=== PATIENT | male | born 1955 | race Caucasian/White ===

== ENCOUNTER 2019-03-03 03:14 | Emergency (ER) | payer BC ==
[~2019-03-03] VITALS: Ht 162.6 cm; Wt 90.9 kg
[2019-03-03] MEDS ORDERED: hyDRALAzine 10mg tablet PO SCH (03:45)
[2019-03-03] MEDS ORDERED: hyDRALAzine 10mg tablet PO ONE (03:45)
[2019-03-03 05:39] VITALS: BP 142/77
== END 2019-03-03 05:41 | disposition home or self-care (01) ==
LOC: ER 03:15
DX: I10 Essential (primary) hypertension (principal); G43.909 Migraine, unspecified, not intractable, without status migrainosus
CPT/HCPCS: 99283

== ENCOUNTER 2019-03-04 10:01 | Emergency (ER) | payer BC, MEDICARE ==
[~2019-03-04] VITALS: Ht 157.5 cm; Wt 80.0 kg
--- NOTE | 2019-03-04 11:30 | NUR ---
WAITING FOR PROVIDER, ASSIST PT WITH LAYING HIS BED DOWN AND GIVING HIM A BLANKET.
[2019-03-04] MEDS ORDERED: hyDRALAzine 10mg tablet PO STA (11:56)
--- NOTE | 2019-03-04 12:09 | NUR ---
Medicated as ordered for elevated blood pressure. Pt reports headache 3/10 and mild nausea at this time. JOSEPH Manriquez is with the patient at this time.
[2019-03-04] MEDS ORDERED: ketorolac tromethamine 15mg/ml inj. IM ONE (12:15)
[2019-03-04] MEDS ORDERED: diphenhydrAMINE 25mg capsule PO ONE (12:15)
[2019-03-04] MEDS ORDERED: proCHLORperazine 10 MG/2 ml inj IM ONE (12:15)
[2019-03-04 13:50] VITALS: BP 135/92
== END 2019-03-04 14:05 | disposition home or self-care (01) ==
LOC: ER 10:01
DX: I10 Essential (primary) hypertension (principal); G44.209 Tension-type headache, unspecified, not intractable
CPT/HCPCS: 96372; 99283; J0780; J1885; Q0163

== ENCOUNTER 2021-03-24 08:58 | Emergency (ER) | payer BC ==
[~2021-03-24] VITALS: Ht 170.2 cm; Wt 90.9 kg
[2021-03-24] MEDS ORDERED: normal saline 1000ML IV soln IVB ONE (09:20)
[2021-03-24] MEDS ORDERED: morphine 4 MG/ML inj SYRINge IV ONE (09:20)
[2021-03-24] MEDS ORDERED: ondansetron/PF 4mg/2ml inj IV ONE (09:20)
[2021-03-24] MEDS ORDERED: IOHEXOL 12MG/ML oral solution 500 ML BOTTLE PO ONE (09:25)
[2021-03-24 09:39] LABS: CLARITY,URINE CLEAR (Clear); COLOR,URINE YELLOW (Yellow); GLUCOSE, URINE NEGATIVE (Neg); KETONES,URINE NEGATIVE (Neg); LEUKOCYTE ESTERASE ,URINE NEGATIVE (Neg); NITRITES, URINE NEGATIVE (Neg); OCCULT BLOOD,URINE TRACE-INTACT (Neg); PH,URINE 5.5 (4.8-8.0); PROTEIN,URINE NEGATIVE (Neg); UROBILINOGEN,URINE 0.2 E.U/dL (0.2-1.0)
[2021-03-24 09:40] LABS: UA COLLECTION TYPE CLN CATCH MIDSTREAM
[2021-03-24 09:40] LABS: BASOPHILS # (AUTO) 0.1 X10'3 (0-0.2); BASOPHILS % (AUTO) 0.7 % (0-1); EOSINOPHILS # (AUTO) 0.1 X10'3 (0-0.9); EOSINOPHILS % (AUTO) 1.1 % (0-6); HEMATOCRIT 43.6 % (42.0-52.0); HEMOGLOBIN 15.4 g/dl (14.0-17.9); LYMPHOCYTES # (AUTO) 1.1 X10'3 (1.1-4.8); LYMPHOCYTES % (AUTO) 13.5 % (21-51); MEAN CORPUSCULAR HEMOGLOBIN 32.8 PG (27.0-31.0); MEAN CORPUSCULAR HGB CONC 35.4 g/dL (33.0-36.5); MEAN CORPUSCULAR VOLUME 92.5 FL (78-98); MEAN PLATELET VOLUME 8.6 FL (7.4-10.4); MONOCYTES # (AUTO) 0.5 X10'3 (0-0.9); MONOCYTES % (AUTO) 6.6 % (2-12); NEUTROPHILS # (AUTO) 6.4 X10'3 (1.8-7.7); NEUTROPHILS % (AUTO) 78.1 % (42-75); PLATELET COUNT 237 X10'3 (140-440); RED BLOOD COUNT 4.71 X10'6 (4.70-6.10); WHITE BLOOD COUNT 8.3 X10'3 (4.5-11.0)
[2021-03-24 09:45] LABS: MUCUS STRANDS MANY /LPF (Neg)
[2021-03-24 09:46] LABS: SQUAMOUS EPITHELIAL CELL,UR MODERATE /LPF (FEW)
[2021-03-24 09:48] LABS: WBC,URINE 0-4 /HPF (0-4)
[2021-03-24 09:49] LABS: BACTERIA,URINE FEW /HPF (Neg)
[2021-03-24 09:58] LABS: ALANINE AMINOTRANSFERASE 25 U/L (12-78); ALBUMIN 4.2 G/DL (3.4-5.0); ALBUMIN/GLOBULIN RATIO 1.2 (1.1-1.5); ALKALINE PHOSPHATASE 87 IU/L (46-116); ANION GAP 9 (8-16); ASPARTATE AMINO TRANSFERASE 20 U/L (10-37); BILIRUBIN,TOTAL 0.4 MG/DL (0.1-1.0); BLOOD UREA NITROGEN 22 MG/DL (7-18); BUN/CREATININE RATIO 18.5 (5.4-32.0); CALCIUM 9.4 MG/DL (8.5-10.1); CHLORIDE 101 MMOL/L (99-107); CREATININE 1.19 MG/DL (0.60-1.10); GLUCOSE 120 MG/DL (70-104); LIPASE 246 U/L (73-393); MAGNESIUM 2.1 MG/DL (1.5-2.4); POTASSIUM 4.2 MMOL/L (3.5-5.1); SODIUM 136 MMOL/L (135-145); TOTAL CARBON DIOXIDE 26.2 MMOL/L (24-32); TOTAL PROTEIN 7.7 G/DL (6.4-8.2); eGFR 62 ML/MIN
[2021-03-24] MEDS: diatr meglu/diatrizoate 30ml oral sol.-(3 dose) bottle PO SCH ×3 (10:13→11:11)
[2021-03-24] MEDS ORDERED: iohexol 300mg/ml 100ml inj. ONE (10:28)
[2021-03-24] MEDS ORDERED: CIPR-259 PO (12:54)
[2021-03-24] MEDS ORDERED: ONDA4TAB12 PO (12:54)
[2021-03-24] MEDS ORDERED: METR-159 PO (12:54)
[2021-03-24] MEDS ORDERED: HYDR-3964 PO (12:55)
[2021-03-24] MEDS ORDERED: metroNIDAZOLE-Flagyl 500mg/NS 100 ML IV SCH (13:00)
[2021-03-24] MEDS ORDERED: metroNIDAZOLE-Flagyl 500mg/NS 100 ML IV ONE (13:00)
[2021-03-24] MEDS ORDERED: ciprofloxacin lact 400MG/200ML 200 ML IV ONE (13:00)
[2021-03-24 14:30] VITALS: BP 115/73
== END 2021-03-24 16:16 | disposition home or self-care (01) ==
LOC: ER 08:59
DX: K52.9 Noninfective gastroenteritis and colitis, unspecified (principal); R10.84 Generalized abdominal pain; K59.00 Constipation, unspecified; Z79.2 Long term (current) use of antibiotics; Z79.899 Other long term (current) drug therapy
CPT/HCPCS: 36415; 71046; 74177; 80053; 81001; 83690; 83735; 84484; 85025; 93005; 96361; 96365; 96367; 96375; 99285; J0744; J2270; J2405; J3490; J7030; Q9963; Q9967

== ENCOUNTER 2021-10-30 21:23 | Emergency (ER) | payer BC ==
[~2021-10-30] VITALS: Ht 165.1 cm; Wt 87.3 kg
[~2021-10-30 21:23] MED LIST: ONDA4TAB12 PO
[2021-10-30 21:52] VITALS: BP 151/90
--- NOTE | 2021-10-31 02:13 | NUR ---
Patient advised me he didn't want to wait anymore to see the doctor. I advised him it would be in his best interest to have his wound looked at by the MD. He chose to leave.
== END 2021-10-31 02:16 | disposition left against medical advice (07) ==
LOC: ER 21:23
DX: S01.81XA Laceration without foreign body of other part of head, initial encounter (principal); Z53.21 Procedure and treatment not carried out due to patient leaving prior to being seen by health care provider; W26.0XXA Contact with knife, initial encounter; Y93.89 Activity, other specified; Y92.89 Other specified places as the place of occurrence of the external cause; Y99.8 Other external cause status
CPT/HCPCS: 73130

== ENCOUNTER 2022-02-07 06:21 | Inpatient (IN) | payer BC ==
[2022-02-01 16:07] LABS: BASOPHILS # (AUTO) 0.2 X10'3 (0-0.2); EOSINOPHILS # (AUTO) 0.2 X10'3 (0-0.9); EOSINOPHILS % (AUTO) 2.6 % (0-6); LYMPHOCYTES % (AUTO) 24.7 % (21-51); MEAN CORPUSCULAR HEMOGLOBIN 32.2 PG (27.0-31.0); MEAN CORPUSCULAR HGB CONC 34.6 g/dL (33.0-36.5); MEAN CORPUSCULAR VOLUME 93.1 FL (78-98); MONOCYTES # (AUTO) 0.7 X10'3 (0-0.9); MONOCYTES % (AUTO) 9.1 % (2-12); NEUTROPHILS % (AUTO) 61.6 % (42-75); PRE OP HEMATOCRIT 45.6 % (42.0-52.0); PRE OP HEMOGLOBIN 15.8 g/dL (14.0-17.9); PRE OP PLATELET COUNT 246 X10'3 (140-440); RED CELL DISTRIBUTION WIDTH 12.7 % (11.5-14.5)
[2022-02-01 16:20] LABS: ALBUMIN 4.1 G/DL (3.4-5.0); ALBUMIN/GLOBULIN RATIO 1.2 (1.1-1.5); ALKALINE PHOSPHATASE 83 IU/L (46-116); BLOOD UREA NITROGEN 22 MG/DL (7-18); BUN/CREATININE RATIO 17.3 (5.4-32.0); CALCIUM 9.2 MG/DL (8.5-10.1); CHLORIDE 103 MMOL/L (99-107); CREATININE 1.27 MG/DL (0.60-1.10); PRE OP ALT 26 U/L (30-65); PRE OP ANION GAP 9 (8-16); PRE OP AST 21 U/L (10-37); PRE OP BILIRUB, TOTAL 0.5 MG/DL (0.0-1.0); PRE OP GLUCOSE 110 MG/DL (70-104); PRE OP POTASSIUM 3.9 MMOL/L (3.4-5.1); PRE OP SODIUM 138 MMOL/L (135-145); TOTAL CARBON DIOXIDE 26.4 MMOL/L (24-32); TOTAL PROTEIN 7.6 G/DL (6.4-8.2); eGFR 57 ML/MIN
[2022-02-07] VITALS (20 sets, daily range): BP systolic 125–149; BP diastolic 67–95
[~2022-02-07] VITALS: Ht 162.6 cm; Wt 89.6 kg
[~2022-02-07 06:21] MED LIST changes: +LISI1TAB51 PO; -ONDA4TAB12 PO; +ROPIVAcaine 0.5% (5mg/ml) 30ml vial ONE; +VENL150T3 PO; +VERA180T59 PO; +ceFAZolin inj. 2,000 MG in dextrose 5%-water 100 ML IV ONE; +famotidine 20mg tablet PO ONE; +ketorolac trometh. 30mg/ml inj. ONE; +ringers solution, lacted 1,000 ML IV SCH; +tranexamic acid 650mg tablet PO ONE; +vancomycin 1,500 MG in NS 300ml IV soln IV ONE
[2022-02-07] MEDS ORDERED: midazolam 1 mg/ML 2ml injection ONE (09:15)
[2022-02-07] MEDS ORDERED: fentaNYL /PF 50mcg/ml 5ml ampule ONE (09:16)
[2022-02-07] MEDS ORDERED: ondansetron/PF 4mg/2ml inj IV PRN ×2 (10:35→11:30)
[2022-02-07] MEDS ORDERED: ROPIVAcaine 0.2% (10 MG/5 ML) BOLUS INJECTION INTERSCALE PRN (10:35)
[2022-02-07] MEDS ORDERED: ROPIVAcaine 0.2%/PF PUMP/bolus 545 ML INTERSCALE SCH (10:35)
[2022-02-07] MEDS ORDERED: morphine 4 MG/ML inj SYRINge IV PRN (10:35)
[2022-02-07] MEDS ORDERED: proCHLORperazine 10 MG/2 ml inj IV PRN (10:35)
[2022-02-07] MEDS ORDERED: meperidine/PF 25mg/ml syringe IV PRN ×3 (10:35)
[2022-02-07] MEDS ORDERED: ringers solution, lacted 1,000 ML IV SCH (10:35)
[2022-02-07] MEDS ORDERED: morphine 2 MG/ML inj. syringe IV PRN (10:35)
[2022-02-07] MEDS ORDERED: ROPIVAcaine 0.5% (5mg/ml) 30ml vial IJ ONE (10:37)
[2022-02-07] MEDS ORDERED: ondansetron/PF 4mg/2ml inj ONE (10:50)
[2022-02-07] MEDS ORDERED: phenylephrine 10mg/ml inj. ONE (10:50)
[2022-02-07] MEDS ORDERED: dexamethasone sod phosphate 4mg/ml inj. ONE (10:50)
[2022-02-07] MEDS ORDERED: propofol inj 20 ML IV ONE (10:50)
[2022-02-07] MEDS ORDERED: ePHEDrine 50MG/ML INJ. ONE (10:50)
[2022-02-07] MEDS ORDERED: ROPIVAcaine 0.5% (5mg/ml) 30ml vial ONE (10:51)
--- NOTE | 2022-02-07 11:19 | NUR ---
Received from OR via BED IN STABLE COONDITION , accompanied by Anesthesiologist and COMMUNICATIONS PROGRAM MANAGER report given by COMMUNICATIONS PROGRAM MANAGER AND Anesthesiolgist. Addendum: 02/07/22 at 1149 by Kellen Little RN Amended: Links added.
[2022-02-07] MEDS ORDERED: HYDROcodone/acetaminophen 10/325mg tab PO PRN ×2 (11:30)
[2022-02-07] MEDS ORDERED: HYDROmorphone 1 mg/ml syringe IV PRN (11:30)
[2022-02-07] MEDS ORDERED: HYDROmorphone inj. 0.5 MG/0.5 ML DISP.SYRIN IV PRN (11:30)
[2022-02-07] MEDS ORDERED: oxyCODONE IR 5mg (immed. release) tablet PO PRN ×2 (11:30)
[2022-02-07] MEDS ORDERED: bisacodyl 10mg suppository rectal RC PRN (11:30)
[2022-02-07] MEDS ORDERED: diphenhydrAMINE 25mg capsule PO PRN ×2 (11:30)
[2022-02-07] MEDS ORDERED: acetaminophen 325mg tablet PO PRN (11:30)
[2022-02-07] MEDS ORDERED: magnesium hydroxide 30ml (MOM) UD suspension PO PRN (11:30)
[2022-02-07] MEDS ORDERED: naloxone 0.4 mg/ml inj IV PRN (11:30)
[2022-02-07] MEDS ORDERED: ipratropium 0.5 MG/2.5ML nebule IH STA (12:00)
[2022-02-07] MEDS ORDERED: albuterol 2.5 MG/3 ML nebule NEB STA (12:00)
--- NOTE | 2022-02-07 12:31 | NUR ---
Patient in room [facility] 350A. I have received report from REENA GOOD FROM [facility] and had the opportunity to ask questions and assume patient care.
--- NOTE | 2022-02-07 12:49 | NUR ---
PATIENT DISCHARGED FROM PACU IN STABLE CONDITION AFTER REPORT GIVEN TO RN TAKING OVER PATIENTS CARE. PATIENT TRANSFERRED TO ROOM 550A ON BED WITH RN X2. Addendum: 02/07/22 at 1303 by Kellen Little RN Amended: Links added.
[2022-02-07] MEDS: potassium cl 20mEq in 1/2 NS 1,000 ML IV SCH ×2 (15:06→21:37)
[2022-02-07] MEDS: ceFAZolin/D5W- 1GM premix 50 ML IV SCH (15:07)
[2022-02-07] MEDS: acetaminophen 325mg tablet PO SCH ×2 (15:07→21:38)
--- NOTE | 2022-02-07 18:30 | NUR ---
Assumed care of pt after report from Fanny VALLES.
--- NOTE | 2022-02-07 18:30 | NUR ---
Problems reprioritized. Patient report given, questions answered & plan of care reviewed with REENA QUINTANILLA.
[2022-02-07] MEDS ORDERED: vancomycin/NS 1 GM ADD-VANTAGE 250 ML IV SCH (20:00)
[2022-02-07] MEDS ORDERED: sennosides 8.6mg tablet PO SCH (21:00)
[2022-02-08] MEDS: ceFAZolin/D5W- 1GM premix 50 ML IV SCH (00:47)
[2022-02-08 02:00] VITALS: BP 165/98
[2022-02-08] MEDS: acetaminophen 325mg tablet PO SCH ×2 (03:15→08:52)
[2022-02-08 06:00] VITALS: BP 124/82
--- NOTE | 2022-02-08 06:13 | NUR ---
Report to Fanny VALLES
--- NOTE | 2022-02-08 06:40 | NUR ---
Patient in room [facility] 350A. I have received report from REENA QUINTANILLA and had the opportunity to ask questions and assume patient care.
[2022-02-08 06:51] LABS: BASOPHILS % (AUTO) 0.2 % (0-1); EOSINOPHILS % (AUTO) 0 % (0-6); HEMATOCRIT 41.3 % (42.0-52.0); HEMOGLOBIN 14.3 g/dl (14.0-17.9); LYMPHOCYTES # (AUTO) 0.8 X10'3 (1.1-4.8); LYMPHOCYTES % (AUTO) 7.4 % (21-51); MEAN CORPUSCULAR HEMOGLOBIN 32.4 PG (27.0-31.0); MEAN CORPUSCULAR HGB CONC 34.5 g/dL (33.0-36.5); MEAN CORPUSCULAR VOLUME 93.7 FL (78-98); MEAN PLATELET VOLUME 9.3 FL (7.4-10.4); MONOCYTES # (AUTO) 0.9 X10'3 (0-0.9); MONOCYTES % (AUTO) 7.8 % (2-12); NEUTROPHILS # (AUTO) 9.4 X10'3 (1.8-7.7); NEUTROPHILS % (AUTO) 84.6 % (42-75); PLATELET COUNT 237 X10'3 (140-440); RED BLOOD COUNT 4.41 X10'6 (4.70-6.10); RED CELL DISTRIBUTION WIDTH 12.7 % (11.5-14.5)
[2022-02-08 07:35] LABS: ANION GAP 10 (8-16); CHLORIDE 102 MMOL/L (99-107); POTASSIUM 4.5 MMOL/L (3.5-5.1); SODIUM 137 MMOL/L (135-145); TOTAL CARBON DIOXIDE 25.5 MMOL/L (24-32)
[2022-02-08] MEDS ORDERED: lisinopril 20mg tablet PO SCH (08:00)
[2022-02-08] MEDS ORDERED: HYDROchlorothiazide 12.5mg capsule PO SCH (08:00)
[2022-02-08] MEDS ORDERED: venlafaxine XR 75mg capsule (Q24H) PO SCH (08:00)
[2022-02-08] MEDS ORDERED: verapamil SR 180mg tablet PO SCH (08:00)
[2022-02-08] MEDS ORDERED: aspirin 325mg tablet PO SCH (08:30)
[2022-02-08] MEDS: potassium cl 20mEq in 1/2 NS 1,000 ML IV SCH (08:41)
[2022-02-08 11:00] VITALS: BP 126/88
--- NOTE | 2022-02-08 11:40 | NUR ---
Pt s/p R shoulder reverse arthroplasty this admit per EMR. Written high protein diet ed w/ RD contact info placed in pt chart Addendum: 02/08/22 at [address] Amended: Links added.
--- NOTE | 2022-02-08 14:27 | NUR ---
PATIENT STABLE AND APPROPRIATE FOR DISCHARGE, IV REMOVED, EDUCATION GIVEN, ALL BELONGINGS SENT WITH PATIENT, PATIENT TAKEN TO LOBBY BY WHEELCHAIR TO AN AWAITING CAR WHERE DAUGHTER WILL TAKE PATIENT HOME
--- NOTE | 2022-02-08 14:27 | NUR ---
Student documentation: I have reviewed and agree with all assessments performed and documented by ARPITA STUDENT RN
[2022-02-09] MEDS ORDERED: acetaminophen 325mg tablet PO PRN (11:30)
== END 2022-02-08 14:29 | disposition home or self-care (01) | DRG 483 ==
LOC: PAS IN 06:21 → SUR 3N 12:55
PROVIDERS: ADMIT Orthopaedic Surgery; ATTEND Orthopaedic Surgery
PROC: 0LS30ZZ Reposition Right Upper Arm Tendon, Open Approach (ICD-10-PCS; 2022-02-07)
PROC: 0RRJ00Z Replacement of Right Shoulder Joint with Reverse Ball and Socket Synthetic Substitute, Open Approach (ICD-10-PCS; principal; 2022-02-07 09:10)
DX: M19.011 Primary osteoarthritis, right shoulder (principal); M75.41 Impingement syndrome of right shoulder; M75.121 Complete rotator cuff tear or rupture of right shoulder, not specified as traumatic; M65.811 Other synovitis and tenosynovitis, right shoulder; Z79.899 Other long term (current) drug therapy
CPT/HCPCS: Z7506; Z7508; 36415; 80051; 80053; 82948; 85025; 87081; 94640; 94760; 97110; 97161; 97530; A4615; A4618; A7000; C1776; G0378; J0690; J1100; J1885; J2250; J2370; J2405; J2704; J2795; J3010; J3370; J3480; J3490; J7040; J7060; J7120; Q0163

== ENCOUNTER 2022-12-02 19:39 | Emergency (ER) | payer BC ==
[~2022-12-02] VITALS: Ht 160 cm; Wt 175.0 kg
[~2022-12-02 19:39] MED LIST changes: -ROPIVAcaine 0.5% (5mg/ml) 30ml vial ONE; -ceFAZolin inj. 2,000 MG in dextrose 5%-water 100 ML IV ONE; -famotidine 20mg tablet PO ONE; -ketorolac trometh. 30mg/ml inj. ONE; -ringers solution, lacted 1,000 ML IV SCH; -tranexamic acid 650mg tablet PO ONE; -vancomycin 1,500 MG in NS 300ml IV soln IV ONE
[2022-12-02] MEDS ORDERED: normal saline 1000ML IV soln IVB ONE (19:45)
[2022-12-02 20:22] LABS: BASOPHILS # (AUTO) 0.1 X10'3 (0-0.2); BASOPHILS % (AUTO) 1.1 % (0-1); EOSINOPHILS # (AUTO) 0.1 X10'3 (0-0.9); EOSINOPHILS % (AUTO) 2.3 % (0-6); HEMATOCRIT 39.2 % (42.0-52.0); HEMOGLOBIN 13.5 g/dl (14.0-17.9); LYMPHOCYTES # (AUTO) 1.4 X10'3 (1.1-4.8); LYMPHOCYTES % (AUTO) 21.6 % (21-51); MEAN CORPUSCULAR HEMOGLOBIN 31.3 PG (27.0-31.0); MEAN CORPUSCULAR HGB CONC 34.4 g/dL (33.0-36.5); MEAN CORPUSCULAR VOLUME 91.1 FL (78-98); MEAN PLATELET VOLUME 9.2 FL (7.4-10.4); MONOCYTES # (AUTO) 0.7 X10'3 (0-0.9); MONOCYTES % (AUTO) 10.7 % (2-12); NEUTROPHILS # (AUTO) 4.1 X10'3 (1.8-7.7); NEUTROPHILS % (AUTO) 64.3 % (42-75); PLATELET COUNT 218 X10'3 (140-440); RED CELL DISTRIBUTION WIDTH 14.1 % (11.5-14.5); WHITE BLOOD COUNT 6.4 X10'3 (4.5-11.0)
[2022-12-02 20:27] LABS: APTT 26 SECONDS (22-32); PROTHROMBIN TIME 10.9 SECONDS (9.0-12.0)
[2022-12-02 20:31] LABS: ALANINE AMINOTRANSFERASE 16 U/L (12-78); ALBUMIN 3.7 G/DL (3.4-5.0); ALBUMIN/GLOBULIN RATIO 1.2 (1.1-1.5); ALKALINE PHOSPHATASE 84 IU/L (46-116); ANION GAP 6 (8-16); ASPARTATE AMINO TRANSFERASE 15 U/L (10-37); BILIRUBIN,TOTAL 0.4 MG/DL (0.1-1.0); BLOOD UREA NITROGEN 16 MG/DL (7-18); BUN/CREATININE RATIO 15.1 (10.0-20.0); CALCIUM 8.9 MG/DL (8.5-10.1); CHLORIDE 104 MMOL/L (99-107); CREATININE 1.06 MG/DL (0.60-1.10); GLUCOSE 108 MG/DL (70-104); POTASSIUM 3.8 MMOL/L (3.5-5.1); SODIUM 139 MMOL/L (135-145); TOTAL CARBON DIOXIDE 29.5 MMOL/L (24-32); TOTAL PROTEIN 6.8 G/DL (6.4-8.2); eCRCL 56 ML/MIN; eGFR 70 ML/MIN
[2022-12-02 20:35] LABS: ETHANOL < 10 MG/DL (<10)
[2022-12-02 21:20] VITALS: BP 182/116; PULSE 76; RESP 15; TEMP 98.2; O2SAT 98
== END 2022-12-02 21:26 | disposition home or self-care (01) ==
LOC: ER 19:39
DX: S01.01XA Laceration without foreign body of scalp, initial encounter (principal); S10.91XA Abrasion of unspecified part of neck, initial encounter; G40.A09 Absence epileptic syndrome, not intractable, without status epilepticus; Z87.19 Personal history of other diseases of the digestive system; Z79.899 Other long term (current) drug therapy; W19.XXXA Unspecified fall, initial encounter; Y93.01 Activity, walking, marching and hiking; Y92.89 Other specified places as the place of occurrence of the external cause; Y99.8 Other external cause status
CPT/HCPCS: 36415; 70450; 71045; 72125; 80053; 80320; 84484; 85025; 85610; 85730; 93005; 96360; 99285; J7030